=== PATIENT | male | born 1960 ===

== ENCOUNTER → 2017-08-16 | Emergency (ER) | payer OTHER ==
[~2017-08-16] VITALS: Ht 177.8 cm; Wt 77.1 kg
== END | disposition home or self-care (01) ==
LOC: ER 12:15
DX: K29.00 Acute gastritis without bleeding (principal); R10.84 Generalized abdominal pain

== ENCOUNTER 2022-11-05 06:55 | Emergency (ER) | payer OTHER ==
[~2022-11-05] VITALS: Ht 165.1 cm; Wt 54.4 kg
== END 2022-11-05 10:43 | disposition home or self-care (01) ==
LOC: ER 06:55
DX: F41.8 Other specified anxiety disorders (principal); F14.90 Cocaine use, unspecified, uncomplicated